=== PATIENT | male | born 1975 | race African-American/Black ===

== ENCOUNTER 2017-04-28 01:46 | Emergency (ER) | payer OTHER ==
[~2017-04-28] VITALS: Ht 175.3 cm; Wt 114.2 kg
[2017-04-28] MEDS ORDERED: MOTRIN800 MG PO (03:05)
[2017-04-28] MEDS ORDERED: VENTOLIN HFA18 GM IH (03:05)
[2017-04-28 03:23] VITALS: BP 123/80
== END 2017-04-28 03:24 | disposition home or self-care (01) ==
LOC: EME 01:46
PROVIDERS: Emergency Medicine
DX: J06.9 Acute upper respiratory infection, unspecified (principal); J45.909 Unspecified asthma, uncomplicated; I10 Essential (primary) hypertension
CPT/HCPCS: 87502; 93005; 94640; 99281; 99284